=== PATIENT | female | born 1940 | race Caucasian/White ===

== ENCOUNTER 2018-02-25 20:27 | Emergency (ER) | payer MEDICARE, BC ==
[2018-02-25 20:48] LABS: POC GLUCOSE 93 mg/dL (70-99)
== END 2018-02-25 21:12 | disposition short-term general hospital (02) ==
LOC: ER 20:27
DX: I63.512 Cerebral infarction due to unspecified occlusion or stenosis of left middle cerebral artery (principal); R47.01 Aphasia; Z88.8 Allergy status to other drugs, medicaments and biological substances
CPT/HCPCS: 70450; 82962; 93005; 99285-25; 99291-25